=== PATIENT | male | born 1950 | race Caucasian/White ===

== ENCOUNTER → 2017-06-13 | Outpatient (CLI) | payer MEDICARE ==
[2017-06-13 18:00] LABS: C-REACTIVE PROTEIN < 5.0 mg/L (<10.0)
[2017-06-16 12:37] LABS: ANTICHROMATIN AB <0.2 AI (0.0-0.9); CENTROMERE B AB <0.2 AI (0.0-0.9); JO-1 ANTIBODY (ANACOMP) <0.2 AI (0.0-0.9); RNP AB 0.2 AI (0.0-0.9); SCLERODERMA-70 ANTIBODIES <0.2 AI (0.0-0.9); SJOGREN'S ANTI-SS-B AB 3.8 AI (0.0-0.9); SJOGREN'S SS-A ANTIBODY <0.2 AI (0.0-0.9); SMITH AB ANA <0.2 AI (0.0-0.9)
[2017-06-16 13:30] LABS: DNA DOUBLE STRAND ANTIBODY ANA <1 IU/mL (0-9)
[2017-06-17 13:50] LABS: TESTOSTERONE FREE (DIRECT) 0.9 pg/mL (6.6-18.1)
== END ==
LOC: OD 15:41
PROVIDERS: ATTEND Physician Assistant
DX: G62.9 Polyneuropathy, unspecified (principal); R60.9 Edema, unspecified; I10 Essential (primary) hypertension
CPT/HCPCS: 36415; 82607; 83036; 84402; 84403; 86140; 86225; 86235; 86430

== ENCOUNTER → 2017-06-16 | Outpatient (CLI) | payer MEDICARE ==
--- NOTE | 2017-06-16 15:38 | XCELERA REPORT ---
[address] [address] Lower Extremity Venous Evaluation Name: POLO WELLS Age: 67 yrs Gender: Male : 1950 Patient Status: Outpatient Patient Location: Study Date: 06/16/2017 01:22 PM Procedure: Color flow and duplex imaging bilaterally of the veins of the lower extremities as well as the Common Femoral veins. Reason For Study: PAIN Ordering Physician: EILEEN RAHMAN PA-C Performed By: Linda Barrow Right Sided Venous Evaluation Normal vessel filling wall to wall, compression and augmentation as well as Colour flow down to the infrageniculate veins. Left Sided Venous Evaluation Normal vessel filling wall to wall, compression and augmentation as well as Colour flow down to the infrageniculate veins. Interpretation Summary No duplex evidence of DVT or obstruction in the bilateral lower extremities. : EILEEN RAHMAN PA-C > Chris Sterling
--- NOTE | 2017-06-16 15:41 | XCELERA REPORT ---
[address] [address] Lower Extremity Arterial Evaluation Name: POLO WELLS Age: 67 yrs Gender: Male : 1950 Patient Status: Outpatient Patient Location: Study Date: 06/16/2017 01:44 PM Procedure: A color flow and duplex scan of the lower extremity arteries was performed bilaterally with velocity and waveform anaylsis. Ankle brachial indicies performed. Reason For Study: PAIN Ordering Physician: EILEEN RAHMAN PA-C Performed By: Linda Barrow Measurements and Calculations Right Left ANTHROPOLOGY PROFESSOR PSV 130.7 124.9 cm/sec Prox PFA PSV -54.1 -76.4 cm/sec Prox SFA PSV 78.1 -76.6 cm/sec Mid SFA PSV -61.9 -66.4 cm/sec Dist SFA PSV -79.0 -79.9 cm/sec Prox Pop A PSV 67.7 59.4 cm/sec Dist TREASURE PSV 48.1 36.5 cm/sec Dist DELIVERY COORDINATOR PSV 62.9 68.8 cm/sec Felipe Pedis PSV 46.5 21.0 cm/sec Right Side Arterial Evaluation Normal velocity and triphasic waveforms noted from the Common Femoral artery to the Posterior Tibial artery. Biphasic in the Anterior Tibial artery . 0-19% stenosis at the Anterior Tibial artery. Ankle Brachial index is 1.25. Left Side Arterial Evaluation Normal velocity and triphasic waveforms noted from the Common Femoral artery to the Posterior Tibial artery. Biphasic in the Anterior Tibial artery . 0-19% stenosis at the Anterior Tibial artery. Ankle Brachial index is 1.25. Interpretation Summary Mild hemodynamically significant lesions in the bilateral lower extremities, on duplex imaging, at rest. : EILEEN RAHMAN PA-C > Chris Sterling
== END ==
LOC: SP 12:57
PROVIDERS: ATTEND Physician Assistant
DX: R60.9 Edema, unspecified (principal); M79.606 Pain in leg, unspecified
CPT/HCPCS: 93925; 93970